=== PATIENT | male | born 1950 | race Asian ===

== ENCOUNTER → 2017-10-27 | Outpatient (CLI) | payer OTHER | END | disposition home or self-care (01) | LOC: PUL 11:06 | DX: R91.8 Other nonspecific abnormal finding of lung field (principal); I25.10 Atherosclerotic heart disease of native coronary artery without angina pectoris | CPT/HCPCS: 94060; 94726; 94729 ==

== ENCOUNTER 2017-11-20 06:11 | Inpatient (IN) | payer OTHER ==
[2017-11-20] MEDS ORDERED: NA BICARBONATE 8.4% 50 ML SYG ×3 (07:00→12:19)
[2017-11-20] MEDS ORDERED: DOPamine-D5W 1.6 MG/ML 250 ML (07:00)
[2017-11-20] MEDS ORDERED: NITROGLYCERIN 50 MG/D5W 250 ML BTL (07:00)
[2017-11-20] MEDS ORDERED: INSULIN REGULAR, HUMAN 100 UNIT/1 ML 3ML VIAL (07:00)
[2017-11-20] MEDS ORDERED: EPINEPHrine 4 MG in DEXTROSE 5% 246 ML IV (07:30)
[2017-11-20] MEDS ORDERED: PHENYLephrine 20MG IN 250 ML 250 ML IV ×2 (07:30→21:00)
[2017-11-20] MEDS ORDERED: MIDAZOLAM 5 ML ×2 (07:41→10:45)
[2017-11-20] MEDS ORDERED: LIDOCAINE 100 MG SYRINGE (07:43)
[2017-11-20] MEDS ORDERED: POTASSIUM CHLORIDE 40 MEQ INJ (07:43)
[2017-11-20] MEDS ORDERED: MAGNESIUM SULFATE (MG) 50% 10 ML INJ (07:43)
[2017-11-20] MEDS ORDERED: PHENYLephrine (100 MCG/ML) 5ML SYG ×3 (07:46→10:49)
[2017-11-20] MEDS ORDERED: HEPARIN 1000 UNITS/ML 10 ML INJ ×2 (07:55→09:59)
[2017-11-20] MEDS ORDERED: ALBUMIN HUMAN 25% 200 ML (07:55)
[2017-11-20] MEDS ORDERED: PHENYLephrine 10 MG INJ (07:57)
[2017-11-20] MEDS ORDERED: MANNITOL 20% 250 ML IV (07:57)
[2017-11-20] MEDS ORDERED: CA CHLORIDE 10% 10 ML SYRINGE (07:59)
[2017-11-20] MEDS: VANCOMYCIN 1 GM INJ (08:02)
[2017-11-20] MEDS: HEPARIN 1000 UNITS/ML 10 ML INJ (08:02)
[2017-11-20] MEDS ORDERED: LIDOCAINE 1% (MDV) 20 ML INJ (08:49)
[2017-11-20] MEDS ORDERED: CEFAZOLIN 1 GM INJ ×2 (09:23→15:02)
[2017-11-20] MEDS ORDERED: FUROSEMIDE 20 MG INJ ×3 (10:00→14:37)
[2017-11-20] MEDS: THROMBIN 5000 UNIT VIAL (11:38)
[2017-11-20] MEDS: GELATIN SIZE 100 SPONGE (11:38)
[2017-11-20 12:55] LABS: TYPE AND SCREEN 1
[2017-11-20 12:57] LABS: IMMEDIATE SPIN CROSSMATCH 1 8
[2017-11-20] MEDS ORDERED: PROTAMINE 250 MG INJ (14:06)
[2017-11-20] MEDS: TRANEXAMIC ACID 1,000 MG in DEXTROSE 5% 100 ML IV (15:30)
[2017-11-20] MEDS ORDERED: ETOMIDATE 20 MG INJ (16:14)
[2017-11-20] MEDS ORDERED: LIDOCAINE 2% (SDV) 5 ML INJ (16:14)
[2017-11-20] MEDS ORDERED: ROCURONIUM 50 MG INJ (16:16)
[2017-11-20] MEDS ORDERED: ALBUMIN HUMAN 5% 250 ML (16:54)
[2017-11-20] MEDS: DOPamine-D5W 1.6 MG/ML 250 ML IV (16:58)
[2017-11-20] MEDS: NITROGLYCERIN 50 MG/D5W (PMX) 250 ML IV (16:59)
[2017-11-20] MEDS ORDERED: ACETAMINOPHEN 650MG/20.3ML CUP NGT (17:00)
[2017-11-20] MEDS ORDERED: EPHEDrine SULFATE 50 MG/5 ML SYG IV (17:00)
[2017-11-20] MEDS ORDERED: INSULIN ASPART [NOVOLOG] 3 ML PEN SC (17:00)
[2017-11-20] MEDS ORDERED: ONDANSETRON 4 MG INJ IV ×2 (17:00)
[2017-11-20] MEDS ORDERED: hydrALAzine 20 MG INJ IV (17:00)
[2017-11-20] MEDS ORDERED: morphine (1 MG/ML) 10ML SYRINGE IV ×3 (17:00)
[2017-11-20] MEDS ORDERED: HYDROmorphONE 0.5 MG/0.5 ML SYG IV (17:00)
[2017-11-20] MEDS ORDERED: DIPHENHYDRAMINE 50 MG INJ IV (17:00)
[2017-11-20 17:13] LABS: WHITE BLOOD COUNT 23.5 10^3/ul (4.8-10.8)
[2017-11-20 17:13] LABS: ABNORMAL IP MESSAGE 1; HEMATOCRIT 36.1 % (42.0-52.0); MEAN CORPUSCULAR HEMOGLOBIN 32.4 pg (29.0-33.0); MEAN CORPUSCULAR HGB CONC 33.2 g/dl (32.0-37.0); MEAN CORPUSCULAR VOLUME 97.6 fl (82.0-101.0); MEAN PLATELET VOLUME 9.7 fl (7.4-10.4); PLATELET COUNT 139 10^3/UL (140-415); POSITIVE DIFF @See below; RED CELL DISTRIBUTION WIDTH 11.9 % (11.5-14.5)
[2017-11-20 17:15] LABS: ADD MAN DIFF? YES
[2017-11-20] MEDS: ALBUMIN HUMAN 5% 250 ML IV (17:15)
[2017-11-20 17:33] LABS: PROTIME 15.4 Sec (11.9-14.9); PT RATIO 1.2
[2017-11-20 17:34] LABS: PARTIAL THROMBOPLASTIN TIME 32.8 Sec (25.0-35.0)
[2017-11-20 17:37] LABS: ANION GAP 18 (8-16); BLOOD UREA NITROGEN 18 mg/dl (7-20); CALCIUM 8.9 mg/dl (8.4-10.2); CARBON DIOXIDE 27 mmol/L (21-31); CHLORIDE 104 mmol/L (97-110); CREATININE 1.26 mg/dl (0.61-1.24); GLUCOSE 122 mg/dl (70-220); MAGNESIUM 2.7 mg/dl (1.7-2.5); POTASSIUM 3.2 mmol/L (3.5-5.1); SODIUM 146 mmol/L (135-144)
[2017-11-20 17:41] LABS: ANISOCYTOSIS 1+ (0-0); BAND NEUTROPHILS #M 1.6 10^3/ul (0.0-0.6); BAND NEUTROPHILS % (M) 7 % (0-4); EOSINOPHILS % (M) 2 % (0-7); GIANT THROMBO% (M) 1 % (0-0); LYMPHOCYTES #M 4.7 10^3/ul (0.8-2.9); LYMPHOCYTES % (M) 20 % (15-51); METAMYELOCYTES #M 0.2 10^3/ul (0.0-0.0); METAMYELOCYTES %M 1 % (0-0); MONOCYTE #M 1.8 10^3/ul (0.3-0.9); MONOCYTES % (M) 8 % (0-11); PLATELET ESTIMATE NORMAL; POLYCHROMASIA 1+ (0-0); REACTIVE LYMPHOCYTES #M 0.2 10^3/ul (0.0-0.0); REACTIVE LYMPHOCYTES% (M) 1 % (0-0); SEG NEUT #M 14.7 10^3/ul (1.7-7.5); SEGMENTED NEUTROPHILS (M) % 61 % (39-77); SMUDGE%M 7 % (0-0)
[2017-11-20 17:53] LABS: MODE VENT - AC
[2017-11-20] MEDS: POTASSIUM CHLORIDE 50 ML IVPB ×3 (18:11→21:27)
[2017-11-20] MEDS: POTASSIUM CHLORIDE 40 MEQ, CALCIUM CHLORIDE 10% 1 GM in DEXTROSE 5%-0.225% NACL 1,000 ML IV (18:14)
[2017-11-20] MEDS: INSULIN HUMAN REGULAR 100 UNIT in SOD CHLORIDE 0.9% 99 ML IV ×3 (19:52→23:59)
[2017-11-20] MEDS: HYDROmorphONE 0.5 MG/0.5 ML SYG IV (19:59)
[2017-11-20] MEDS ORDERED: DEXTROSE 50% 50 ML SYRINGE IV ×2 (20:00)
[2017-11-20] MEDS: ACCU-CHEK XX ×4 (20:20→23:33)
[2017-11-20] MEDS: CEFAZOLIN 1 GM/50 ML (PMX) 50 ML IVPB (20:24)
[2017-11-20] MEDS: ACETAMINOPHEN 650 MG SUPP PR (23:40)
[2017-11-21 00:01] LABS: POTASSIUM 4.8 mmol/L (3.5-5.1)
[2017-11-21] MEDS: ACCU-CHEK XX ×26 (00:09→23:00)
[2017-11-21] MEDS: INSULIN HUMAN REGULAR 100 UNIT in SOD CHLORIDE 0.9% 99 ML IV ×4 (01:32→07:08)
[2017-11-21 04:22] LABS: ADD MAN DIFF? NO
[2017-11-21 04:24] LABS: ABNORMAL IP MESSAGE 1; BASOPHILS % 0.1 % (0.0-2.0); HEMATOCRIT 29.5 % (42.0-52.0); HEMOGLOBIN 9.7 g/dl (14.0-18.0); LYMPHOCYTES # 0.5 10^3/ul (0.8-2.9); LYMPHOCYTES % 4.4 % (15.0-51.0); MEAN CORPUSCULAR HEMOGLOBIN 32.1 pg (29.0-33.0); MEAN CORPUSCULAR HGB CONC 32.9 g/dl (32.0-37.0); MEAN CORPUSCULAR VOLUME 97.7 fl (82.0-101.0); MEAN PLATELET VOLUME 10.1 fl (7.4-10.4); MONOCYTE # 0.9 10^3/ul (0.3-0.9); MONOCYTES % 7.9 % (0.0-11.0); NEUTROPHIL # 9.4 10^3/ul (1.6-7.5); PLATELET COUNT 108 10^3/UL (140-415); POSITIVE DIFF @See below; RED BLOOD COUNT 3.02 10^6/ul (4.70-6.10); RED CELL DISTRIBUTION WIDTH 12.1 % (11.5-14.5)
[2017-11-21 04:24] LABS: WHITE BLOOD COUNT 10.8 10^3/ul (4.8-10.8)
[2017-11-21 04:39] LABS: AADO2 Arterial 244.9 mmHg (7.0-24.0); Arterial Base Excess -2.1 mmol/L (-3.0-3); Arterial Blood Gas Oxygen Sat 92.6 mmHG (95.0-98.0); Arterial COHb 0.3 % (0.0-3.0); Arterial Fraction of Oxyhgb 92.1 % (93.0-99.0); Arterial HCO3 22.7 mmol/L (22.0-26.0); Arterial MetHb 0.2 % (0.0-1.5); Arterial Total Hemglobin 10.1 g/dl (12.0-18.0); Arterial pCO2 38.9 mmhg (35-45); MODE VENT - AC; Site A-Line
[2017-11-21 04:46] LABS: INR 1.22; PROTIME 15.6 Sec (11.9-14.9); PT RATIO 1.2
[2017-11-21 04:47] LABS: PARTIAL THROMBOPLASTIN TIME 38.3 Sec (25.0-35.0)
[2017-11-21] MEDS: HYDROmorphONE 0.5 MG/0.5 ML SYG IV ×5 (04:47→19:56)
[2017-11-21 04:58] LABS: ANION GAP 15 (8-16); BLOOD UREA NITROGEN 20 mg/dl (7-20); CALCIUM 8.4 mg/dl (8.4-10.2); CARBON DIOXIDE 24 mmol/L (21-31); CHLORIDE 110 mmol/L (97-110); CREATININE 1.34 mg/dl (0.61-1.24); GLUCOSE 154 mg/dl (70-220); MAGNESIUM 1.8 mg/dl (1.7-2.5); POTASSIUM 5.5 mmol/L (3.5-5.1); SODIUM 143 mmol/L (135-144)
[2017-11-21] MEDS: MAGNESIUM SULFATE 1 GM/D5W 100 ML IVPB ×2 (05:55→07:14)
[2017-11-21] MEDS: DOPamine-D5W 1.6 MG/ML 250 ML IV (07:53)
[2017-11-21] MEDS: DEXTROSE 5%-0.225% NACL 1,000 ML IV (08:09)
[2017-11-21] MEDS: PANTOPRAZOLE 40 MG INJ IV (09:32)
[2017-11-21 11:14] LABS: AADO2 Arterial 232.6 mmHg (7.0-24.0); Arterial Base Excess -0.2 mmol/L (-3.0-3); Arterial Blood Gas Oxygen Sat 94.7 mmHG (95.0-98.0); Arterial COHb 0.3 % (0.0-3.0); Arterial Fraction of Oxyhgb 94.4 % (93.0-99.0); Arterial HCO3 24.6 mmol/L (22.0-26.0); Arterial MetHb 0 % (0.0-1.5); Arterial Total Hemglobin 10.4 g/dl (12.0-18.0); Arterial pCO2 40.7 mmhg (35-45); Blood Gas PS 5; MODE VENT - CPAP; Site A-Line
[2017-11-21] MEDS: ACETAMINOPHEN 325 MG TAB PO (13:05)
[2017-11-21] MEDS: OXYCODONE/ACETAMINOPHEN (5/325) TAB PO ×2 (14:49→17:54)
[2017-11-21 15:41] LABS: AADO2 Arterial 360.5 mmHg (7.0-24.0); Arterial Base Excess -0.5 mmol/L (-3.0-3); Arterial Blood Gas Oxygen Sat 91.7 mmHG (95.0-98.0); Arterial COHb 0.2 % (0.0-3.0); Arterial Fraction of Oxyhgb 91.2 % (93.0-99.0); Arterial HCO3 27.3 mmol/L (22.0-26.0); Arterial MetHb 0.3 % (0.0-1.5); Arterial Total Hemglobin 12.7 g/dl (12.0-18.0); Arterial pCO2 59.2 mmhg (35-45); Site A-Line
[2017-11-21 15:43] LABS: AADO2 Mixed Venous 389.6 mmHg; MODE VENT - AC; MetHgb Mixed Venous 0.5 %; Mixed Venous Base Excess -0.6 mmol/L; Mixed Venous COHb 0.5 %; Mixed Venous Fraction OxyHgb 65.6 %; Mixed Venous Oxygen Sat 66.3 mmHG (65.0-75.0); Mixed Venous Total Hemglobin 12.5 g/dl; Sample Type BLMV; Site PUL ART LINE
[2017-11-21 16:29] LABS: HEMATOCRIT 29.1 % (42.0-52.0)
[2017-11-21] MEDS: LEVALBUTEROL (NEB) 0.63 MG/3 ML AMP HHN ×2 (21:00→23:21)
[2017-11-22] MEDS: ACCU-CHEK XX ×7 (01:00→06:05)
[2017-11-22] MEDS: DEXTROSE 5%-0.225% NACL 1,000 ML IV ×2 (01:52→04:39)
[2017-11-22] MEDS: HYDROmorphONE 0.5 MG/0.5 ML SYG IV ×3 (02:05→12:31)
[2017-11-22] MEDS: LEVALBUTEROL (NEB) 0.63 MG/3 ML AMP HHN ×4 (02:35→13:56)
[2017-11-22 05:08] LABS: ADD MAN DIFF? NO
[2017-11-22 05:19] LABS: WHITE BLOOD COUNT 16.3 10^3/ul (4.8-10.8)
[2017-11-22 05:19] LABS: ABNORMAL IP MESSAGE 1; BASOPHILS % 0.2 % (0.0-2.0); EOSINOPHILS % 0.1 % (0.0-7.0); HEMATOCRIT 29.9 % (42.0-52.0); HEMOGLOBIN 9.6 g/dl (14.0-18.0); LYMPHOCYTES # 1.6 10^3/ul (0.8-2.9); LYMPHOCYTES % 9.8 % (15.0-51.0); MEAN CORPUSCULAR HEMOGLOBIN 32.2 pg (29.0-33.0); MEAN CORPUSCULAR HGB CONC 32.1 g/dl (32.0-37.0); MEAN CORPUSCULAR VOLUME 100.3 fl (82.0-101.0); MEAN PLATELET VOLUME 11.1 fl (7.4-10.4); MONOCYTE # 1.6 10^3/ul (0.3-0.9); MONOCYTES % 9.5 % (0.0-11.0); PLATELET COUNT 111 10^3/UL (140-415); POSITIVE DIFF @See below; RED BLOOD COUNT 2.98 10^6/ul (4.70-6.10); RED CELL DISTRIBUTION WIDTH 12.2 % (11.5-14.5)
[2017-11-22 05:54] LABS: ANION GAP 13 (8-16); BLOOD UREA NITROGEN 19 mg/dl (7-20); CALCIUM 8.6 mg/dl (8.4-10.2); CARBON DIOXIDE 27 mmol/L (21-31); CHLORIDE 104 mmol/L (97-110); CREATININE 1.14 mg/dl (0.61-1.24); GLUCOSE 146 mg/dl (70-220); MAGNESIUM 2.2 mg/dl (1.7-2.5); PHOSPHORUS 3.2 mg/dl (2.5-4.9); POTASSIUM 4.3 mmol/L (3.5-5.1); SODIUM 140 mmol/L (135-144)
[2017-11-22] MEDS: PANTOPRAZOLE 40 MG INJ IV (05:57)
[2017-11-22] MEDS: OXYCODONE/ACETAMINOPHEN (5/325) TAB PO (07:48)
[2017-11-22 08:23] LABS: AADO2 Arterial 186.1 mmHg (7.0-24.0); Allen Test ACCEPTAB; Arterial Base Excess -1.9 mmol/L (-3.0-3); Arterial Blood Gas Oxygen Sat 94.8 mmHG (95.0-98.0); Arterial COHb 0 % (0.0-3.0); Arterial Fraction of Oxyhgb 94.5 % (93.0-99.0); Arterial HCO3 23.9 mmol/L (22.0-26.0); Arterial MetHb 0.3 % (0.0-1.5); Arterial Total Hemglobin 10.3 g/dl (12.0-18.0); Arterial pCO2 45.5 mmhg (35-45); MODE MASK - SIMPLE; Site Right Radial
[2017-11-22] MEDS: ASPIRIN 81 MG TAB PO (08:38)
[2017-11-22] MEDS ORDERED: FUROSEMIDE 40 MG INJ (10:48)
[2017-11-22] MEDS: FUROSEMIDE 40 MG INJ IV (11:00)
[2017-11-22] MEDS: METHYLPREDNISOLONE 40 MG INJ IV ×2 (13:24→21:33)
[2017-11-22] MEDS: IPRATROPIUM (NEB) 0.5 MG/2.5 ML AMP HHN ×3 (13:56→19:39)
[2017-11-22] MEDS: ACETAMINOPHEN 325 MG TAB PO (16:30)
[2017-11-22] MEDS ORDERED: GLUCAGON 1 MG INJ IM (17:00)
[2017-11-22] MEDS ORDERED: GLUCOSE GEL 15 GRAM TUBE PO ×2 (17:00)
[2017-11-22] MEDS ORDERED: GLUCOSE GEL 15 GRAM TUBE BUCCAL (17:00)
[2017-11-22] MEDS ORDERED: DEXTROSE 50% 50 ML SYRINGE IV ×2 (17:00)
[2017-11-22] MEDS: LEVALBUTEROL (NEB) 1.25 MG/0.5 ML AMP HHN ×2 (17:32→19:36)
[2017-11-22] MEDS: INSULIN ASPART [NOVOLOG] 3 ML PEN SC ×2 (18:06→21:08)
[2017-11-22] MEDS: METOPROLOL 25 MG TAB PO ×2 (21:00→22:15)
[2017-11-22] MEDS: LORAZEPAM 0.5 MG TAB PO (21:33)
[2017-11-22] MEDS ORDERED: METOPROLOL 5 MG INJ IV (23:30)
[2017-11-23] MEDS: AMIODARONE 150MG/D5W BOLUS 100 ML IV (00:21)
[2017-11-23] MEDS: AMIODARONE 900 MG in DEXTROSE 5% 482 ML IV (00:40)
[2017-11-23] MEDS: IPRATROPIUM (NEB) 0.5 MG/2.5 ML AMP HHN ×5 (01:32→19:47)
[2017-11-23] MEDS: LEVALBUTEROL (NEB) 1.25 MG/0.5 ML AMP HHN ×5 (01:32→19:46)
[2017-11-23] MEDS: ACCU-CHEK XX (02:17)
[2017-11-23] MEDS: LORAZEPAM 0.5 MG TAB PO (03:04)
[2017-11-23 04:12] LABS: AADO2 Arterial 299.9 mmHg (7.0-24.0); Allen Test ACCEPTAB; Arterial Base Excess -3.2 mmol/L (-3.0-3); Arterial Blood Gas Oxygen Sat 96.4 mmHG (95.0-98.0); Arterial COHb 0.3 % (0.0-3.0); Arterial Fraction of Oxyhgb 95.8 % (93.0-99.0); Arterial HCO3 20.6 mmol/L (22.0-26.0); Arterial MetHb 0.3 % (0.0-1.5); Arterial Total Hemglobin 10.8 g/dl (12.0-18.0); Arterial pCO2 32.5 mmhg (35-45); MODE HFNC; Site Right Radial
[2017-11-23] MEDS: HYDROmorphONE 0.5 MG/0.5 ML SYG IV (04:28)
[2017-11-23] MEDS ORDERED: RACEPINEPHRINE 2.25%(NEB) 0.5 ML AMP (04:53)
[2017-11-23] MEDS: RACEPINEPHRINE 2.25%(NEB) 0.5 ML AMP HHN (05:00)
[2017-11-23] MEDS: METHYLPREDNISOLONE 40 MG INJ IV ×3 (05:27→20:46)
[2017-11-23] MEDS: PANTOPRAZOLE 40 MG INJ IV (05:27)
[2017-11-23] MEDS: METHYLPREDNISOLONE 125 MG INJ IV (06:40)
[2017-11-23 07:23] LABS: ADD MAN DIFF? NO
[2017-11-23 07:27] LABS: HEMOGLOBIN 9.3 g/dl (14.0-18.0); RED BLOOD COUNT 2.87 10^6/ul (4.70-6.10)
[2017-11-23 07:27] LABS: WHITE BLOOD COUNT 12.6 10^3/ul (4.8-10.8)
[2017-11-23 07:28] LABS: ABNORMAL IP MESSAGE 1; BASOPHILS % 0.1 % (0.0-2.0); HEMATOCRIT 28.2 % (42.0-52.0); LYMPHOCYTES # 0.5 10^3/ul (0.8-2.9); LYMPHOCYTES % 4.1 % (15.0-51.0); MEAN CORPUSCULAR HEMOGLOBIN 32.4 pg (29.0-33.0); MEAN CORPUSCULAR VOLUME 98.3 fl (82.0-101.0); MEAN PLATELET VOLUME 10.9 fl (7.4-10.4); MONOCYTE # 0.3 10^3/ul (0.3-0.9); MONOCYTES % 2.6 % (0.0-11.0); NEUTROPHIL # 11.7 10^3/ul (1.6-7.5); NEUTROPHILS % 92.5 % (39.0-77.0); PLATELET COUNT 125 10^3/UL (140-415); POSITIVE DIFF @See below; RED CELL DISTRIBUTION WIDTH 11.9 % (11.5-14.5)
[2017-11-23] MEDS: INSULIN ASPART [NOVOLOG] 3 ML PEN SC ×4 (07:35→20:56)
[2017-11-23 07:58] LABS: ANION GAP 18 (8-16); BLOOD UREA NITROGEN 33 mg/dl (7-20); CALCIUM 8.5 mg/dl (8.4-10.2); CARBON DIOXIDE 24 mmol/L (21-31); CHLORIDE 100 mmol/L (97-110); GLUCOSE 158 mg/dl (70-220); MAGNESIUM 2.1 mg/dl (1.7-2.5); SODIUM 137 mmol/L (135-144)
[2017-11-23] MEDS: ASPIRIN 81 MG TAB PO (09:16)
[2017-11-23] MEDS: METOPROLOL 50 MG TAB GTB ×2 (09:17→20:58)
[2017-11-23 09:20] LABS: AADO2 Arterial 158.3 mmHg (7.0-24.0); Allen Test ACCEPTAB; Arterial Base Excess -2.5 mmol/L (-3.0-3); Arterial Blood Gas Oxygen Sat 96.4 mmHG (95.0-98.0); Arterial COHb 0.3 % (0.0-3.0); Arterial Fraction of Oxyhgb 95.8 % (93.0-99.0); Arterial HCO3 20.5 mmol/L (22.0-26.0); Arterial MetHb 0.3 % (0.0-1.5); Arterial Total Hemglobin 10.8 g/dl (12.0-18.0); Arterial pCO2 29.6 mmhg (35-45); Blood Gas IEPAP 15/5; MODE MASK - BIPAP; Site Right Radial
[2017-11-23] MEDS: OXYCODONE/ACETAMINOPHEN (5/325) TAB PO ×2 (09:44→16:18)
[2017-11-23] MEDS: FUROSEMIDE 40 MG INJ IV (10:10)
[2017-11-23] MEDS: BISACODYL (EC) 5 MG TAB PO (16:10)
[2017-11-23] MEDS: DOCUSATE SODIUM 100 MG CAP PO ×2 (16:11→20:45)
[2017-11-23] MEDS: AMIODARONE 200 MG TAB NGT (20:45)
[2017-11-24] MEDS: LEVALBUTEROL (NEB) 1.25 MG/0.5 ML AMP HHN ×4 (01:21→19:51)
[2017-11-24] MEDS: IPRATROPIUM (NEB) 0.5 MG/2.5 ML AMP HHN ×4 (01:21→19:51)
[2017-11-24] MEDS: ACCU-CHEK XX (02:01)
[2017-11-24] MEDS: PANTOPRAZOLE 40 MG INJ IV (05:37)
[2017-11-24] MEDS: METHYLPREDNISOLONE 40 MG INJ IV ×2 (05:38→16:41)
[2017-11-24 05:43] LABS: WHITE BLOOD COUNT 18.1 10^3/ul (4.8-10.8)
[2017-11-24 05:43] LABS: HEMATOCRIT 31.6 % (42.0-52.0); HEMOGLOBIN 10.4 g/dl (14.0-18.0); MEAN CORPUSCULAR HEMOGLOBIN 32.3 pg (29.0-33.0); MEAN CORPUSCULAR HGB CONC 32.9 g/dl (32.0-37.0); MEAN CORPUSCULAR VOLUME 98.1 fl (82.0-101.0); MEAN PLATELET VOLUME 11.5 fl (7.4-10.4); NUCLEATED RED BLOOD CELLS% 2.3 /100WBC (0.0-0.0); PLATELET COUNT 160 10^3/UL (140-415); POSITIVE DIFF @See below; RED BLOOD COUNT 3.22 10^6/ul (4.70-6.10)
[2017-11-24 06:05] LABS: ADD MAN DIFF? YES
[2017-11-24 06:15] LABS: ANION GAP 20 (8-16); BLOOD UREA NITROGEN 51 mg/dl (7-20); CARBON DIOXIDE 24 mmol/L (21-31); CHLORIDE 98 mmol/L (97-110); CREATININE 1.45 mg/dl (0.61-1.24); GLUCOSE 251 mg/dl (70-220); MAGNESIUM 2.3 mg/dl (1.7-2.5); PHOSPHORUS 4.5 mg/dl (2.5-4.9); POTASSIUM 4.8 mmol/L (3.5-5.1); SODIUM 137 mmol/L (135-144)
[2017-11-24 06:18] LABS: ALBUMIN 4.1 g/dl (3.3-4.9); ALBUMIN/GLOBULIN RATIO 1.24; ALKALINE PHOSPHATASE 62 IU/L (42-121); ANION GAP 20 (8-16); BILIRUBIN,INDIRECT 0.7 mg/dl (0-1.1); BILIRUBIN,TOTAL 0.7 mg/dl (0.2-1.3); BLOOD UREA NITROGEN 51 mg/dl (7-20); CALCIUM 9.1 mg/dl (8.4-10.2); CARBON DIOXIDE 24 mmol/L (21-31); CHLORIDE 98 mmol/L (97-110); CREATININE 1.56 mg/dl (0.61-1.24); GLUCOSE 256 mg/dl (70-220); POTASSIUM 4.5 mmol/L (3.5-5.1); SODIUM 137 mmol/L (135-144); TOTAL PROTEIN 7.4 g/dl (6.1-8.1)
[2017-11-24 06:32] LABS: ALANINE AMINOTRANSFERASE 2297 IU/L (13-69)
[2017-11-24 07:32] LABS: ASPARTATE AMINO TRANSFERASE 3595 IU/L (15-46)
[2017-11-24] MEDS: INSULIN ASPART [NOVOLOG] 3 ML PEN SC ×5 (07:42→20:20)
[2017-11-24] MEDS: METOPROLOL 50 MG TAB GTB ×2 (08:39→20:17)
[2017-11-24] MEDS: AMIODARONE 200 MG TAB NGT ×3 (08:39→20:17)
[2017-11-24] MEDS: DOCUSATE SODIUM 100 MG CAP PO ×2 (08:40→20:18)
[2017-11-24] MEDS: ASPIRIN 81 MG TAB PO (08:40)
[2017-11-24 08:53] LABS: BAND NEUTROPHILS #M 1.2 10^3/ul (0.0-0.6); BAND NEUTROPHILS % (M) 7 % (0-4); ERYTHROBLAST% (NRBC) (M) 3 % (0-0); GIANT THROMBO% (M) 2 % (0-0); LYMPHOCYTES #M 1.4 10^3/ul (0.8-2.9); LYMPHOCYTES % (M) 8 % (15-51); MONOCYTE #M 0.3 10^3/ul (0.3-0.9); MONOCYTES % (M) 2 % (0-11); PLATELET ESTIMATE NORMAL; POLYCHROMASIA 2+ (0-0); SEG NEUT #M 15.2 10^3/ul (1.6-7.5); SEGMENTED NEUTROPHILS (M) % 83 % (39-77)
[2017-11-24 09:20] LABS: ADD UMIC YES; UR ASCORBIC ACID NEGATIVE (NEGATIVE); UR BILIRUBIN (Dip) NEGATIVE (NEGATIVE); UR BLOOD (Dip) 2+ mg/dL (NEGATIVE); UR CLARITY CLEAR (CLEAR); UR COLOR YELLOW (YELLOW); UR GLUCOSE (Dip) 3+ mg/dL (NEGATIVE); UR KETONES (Dip) NEGATIVE (NEGATIVE); UR LEUKOCYTE ESTERASE (Dip) NEGATIVE Leu/ul (NEGATIVE); UR NITRITE (Dip) NEGATIVE (NEGATIVE); UR RBC 3 /HPF (0-5); UR SPECIFIC GRAVITY (Dip) 1.011 (1.003-1.030); UR TOTAL PROTEIN (Dip) 2+ mg/dl (NEGATIVE); UR UROBILINOGEN (Dip) NEGATIVE (NEGATIVE); UR WBC 1 /HPF (0-5)
[2017-11-24 10:03] LABS: CREATININE,URINE RANDOM 43.73 mg/dl (20-370); PROTEIN/CREAT RATIO 1.94 RATIO
[2017-11-24] MEDS: LEVALBUTEROL (NEB) 0.63 MG/3 ML AMP HHN (12:28)
[2017-11-24] MEDS: INSULIN GLARGINE [LANtus] 3 ML PEN SC (15:16)
[2017-11-24] MEDS: OXYCODONE/ACETAMINOPHEN (5/325) TAB PO (20:18)
[2017-11-25] MEDS: LEVALBUTEROL (NEB) 1.25 MG/0.5 ML AMP HHN ×4 (01:38→20:03)
[2017-11-25] MEDS: IPRATROPIUM (NEB) 0.5 MG/2.5 ML AMP HHN ×4 (01:38→20:03)
[2017-11-25] MEDS ORDERED: ACCU-CHEK XX (02:00)
[2017-11-25] MEDS: ACCU-CHEK XX (02:30)
[2017-11-25] MEDS: INSULIN ASPART [NOVOLOG] 3 ML PEN SC ×8 (02:34→20:44)
[2017-11-25] MEDS: OXYCODONE/ACETAMINOPHEN (5/325) TAB PO ×3 (04:41→20:34)
[2017-11-25] MEDS: PANTOPRAZOLE 40 MG INJ IV (05:02)
[2017-11-25 05:40] LABS: ADD MAN DIFF? NO
[2017-11-25 06:02] LABS: BASOPHILS % 0.2 % (0.0-2.0); HEMATOCRIT 33.4 % (42.0-52.0); HEMOGLOBIN 10.8 g/dl (14.0-18.0); LYMPHOCYTES # 0.7 10^3/ul (0.8-2.9); LYMPHOCYTES % 4.6 % (15.0-51.0); MEAN CORPUSCULAR HEMOGLOBIN 31.8 pg (29.0-33.0); MEAN CORPUSCULAR HGB CONC 32.3 g/dl (32.0-37.0); MEAN CORPUSCULAR VOLUME 98.2 fl (82.0-101.0); MEAN PLATELET VOLUME 10.7 fl (7.4-10.4); MONOCYTE # 0.8 10^3/ul (0.3-0.9); MONOCYTES % 5.1 % (0.0-11.0); NEUTROPHIL # 13.6 10^3/ul (1.6-7.5); NEUTROPHILS % 85.3 % (39.0-77.0); NUCLEATED RED BLOOD CELLS # 0.6 10^3/ul (0.0-0.0); NUCLEATED RED BLOOD CELLS% 3.5 /100WBC (0.0-0.0); PLATELET COUNT 196 10^3/UL (140-415); RED CELL DISTRIBUTION WIDTH 11.9 % (11.5-14.5)
[2017-11-25 06:02] LABS: WHITE BLOOD COUNT 15.9 10^3/ul (4.8-10.8)
[2017-11-25 06:07] LABS: ALBUMIN 3.7 g/dl (3.3-4.9); ALBUMIN/GLOBULIN RATIO 1.27; ALKALINE PHOSPHATASE 69 IU/L (42-121); ANION GAP 14 (8-16); BILIRUBIN,INDIRECT 0.7 mg/dl (0-1.1); BILIRUBIN,TOTAL 0.7 mg/dl (0.2-1.3); BLOOD UREA NITROGEN 43 mg/dl (7-20); CALCIUM 8.7 mg/dl (8.4-10.2); CARBON DIOXIDE 29 mmol/L (21-31); CHLORIDE 101 mmol/L (97-110); CREATININE 1.22 mg/dl (0.61-1.24); GLUCOSE 212 mg/dl (70-220); POTASSIUM 4.8 mmol/L (3.5-5.1); SODIUM 139 mmol/L (135-144); TOTAL PROTEIN 6.6 g/dl (6.1-8.1)
[2017-11-25 06:16] LABS: ALANINE AMINOTRANSFERASE 1538 IU/L (13-69); ASPARTATE AMINO TRANSFERASE 825 IU/L (15-46)
[2017-11-25 07:23] LABS: HEMOGLOBIN A1C 6.5 % (0-5.9)
[2017-11-25] MEDS: INSULIN GLARGINE [LANtus] 3 ML PEN SC (07:57)
[2017-11-25] MEDS: AMIODARONE 200 MG TAB NGT ×3 (08:53→20:33)
[2017-11-25] MEDS: ASPIRIN 81 MG TAB PO (08:53)
[2017-11-25] MEDS: METOPROLOL 50 MG TAB GTB ×2 (08:54→20:34)
[2017-11-25] MEDS: DOCUSATE SODIUM 100 MG CAP PO ×2 (08:54→20:33)
[2017-11-25] MEDS: METHYLPREDNISOLONE 40 MG INJ IV (10:05)
[2017-11-25] MEDS: FUROSEMIDE 20 MG INJ IV (16:46)
[2017-11-26] MEDS: LEVALBUTEROL (NEB) 1.25 MG/0.5 ML AMP HHN ×4 (01:00→21:51)
[2017-11-26] MEDS: IPRATROPIUM (NEB) 0.5 MG/2.5 ML AMP HHN ×4 (01:00→21:51)
[2017-11-26] MEDS: OXYCODONE/ACETAMINOPHEN (5/325) TAB PO ×3 (03:40→18:16)
[2017-11-26 07:01] LABS: ADD MAN DIFF? NO
[2017-11-26 07:04] LABS: BASOPHILS % 0.2 % (0.0-2.0); HEMATOCRIT 35.3 % (42.0-52.0); HEMOGLOBIN 11.2 g/dl (14.0-18.0); LYMPHOCYTES # 0.8 10^3/ul (0.8-2.9); LYMPHOCYTES % 5.2 % (15.0-51.0); MEAN CORPUSCULAR HEMOGLOBIN 31.6 pg (29.0-33.0); MEAN CORPUSCULAR HGB CONC 31.7 g/dl (32.0-37.0); MEAN CORPUSCULAR VOLUME 99.7 fl (82.0-101.0); MEAN PLATELET VOLUME 10.6 fl (7.4-10.4); MONOCYTE # 0.8 10^3/ul (0.3-0.9); NEUTROPHIL # 13.3 10^3/ul (1.6-7.5); NEUTROPHILS % 84.6 % (39.0-77.0); NUCLEATED RED BLOOD CELLS # 0.6 10^3/ul (0.0-0.0); NUCLEATED RED BLOOD CELLS% 3.8 /100WBC (0.0-0.0); PLATELET COUNT 247 10^3/UL (140-415); RED BLOOD COUNT 3.54 10^6/ul (4.70-6.10); RED CELL DISTRIBUTION WIDTH 12.1 % (11.5-14.5)
[2017-11-26 07:04] LABS: WHITE BLOOD COUNT 15.8 10^3/ul (4.8-10.8)
[2017-11-26 07:58] LABS: ANION GAP 16 (8-16); BLOOD UREA NITROGEN 47 mg/dl (7-20); CALCIUM 8.6 mg/dl (8.4-10.2); CHLORIDE 98 mmol/L (97-110); CREATININE 1.38 mg/dl (0.61-1.24); GLUCOSE 314 mg/dl (70-220); MAGNESIUM 2.3 mg/dl (1.7-2.5); PHOSPHORUS 4.6 mg/dl (2.5-4.9); POTASSIUM 5.3 mmol/L (3.5-5.1); SODIUM 137 mmol/L (135-144)
[2017-11-26 08:03] LABS: CARBON DIOXIDE 28 mmol/L (21-31)
[2017-11-26] MEDS: INSULIN ASPART [NOVOLOG] 3 ML PEN SC ×7 (08:03→20:12)
[2017-11-26] MEDS: INSULIN GLARGINE [LANtus] 3 ML PEN SC (08:04)
[2017-11-26] MEDS: DOCUSATE SODIUM 100 MG CAP PO ×2 (08:54→20:05)
[2017-11-26] MEDS: AMIODARONE 200 MG TAB NGT ×3 (08:54→20:06)
[2017-11-26] MEDS: METOPROLOL 50 MG TAB GTB ×2 (08:54→23:16)
[2017-11-26] MEDS: ASPIRIN 81 MG TAB PO (08:54)
[2017-11-26] MEDS: FUROSEMIDE 20 MG INJ IV ×2 (11:33→17:36)
[2017-11-26] MEDS: ATORVASTATIN 40 MG TAB PO (20:06)
[2017-11-27] MEDS: LEVALBUTEROL (NEB) 1.25 MG/0.5 ML AMP HHN ×2 (01:27→21:34)
[2017-11-27] MEDS: IPRATROPIUM (NEB) 0.5 MG/2.5 ML AMP HHN ×4 (01:27→21:27)
[2017-11-27] MEDS: OXYCODONE/ACETAMINOPHEN (5/325) TAB PO ×4 (03:23→20:42)
[2017-11-27] MEDS: FUROSEMIDE 20 MG INJ IV (05:08)
[2017-11-27] MEDS: INSULIN ASPART [NOVOLOG] 3 ML PEN SC ×7 (07:26→20:46)
[2017-11-27] MEDS: INSULIN GLARGINE [LANtus] 3 ML PEN SC (07:28)
[2017-11-27] MEDS: LEVALBUTEROL (NEB) 0.63 MG/3 ML AMP HHN ×3 (07:46→21:27)
[2017-11-27] MEDS: DOCUSATE SODIUM 100 MG CAP PO ×2 (08:42→20:41)
[2017-11-27] MEDS: METOPROLOL 50 MG TAB GTB ×2 (08:42→20:41)
[2017-11-27] MEDS: ASPIRIN 325 MG TAB PO (08:43)
[2017-11-27] MEDS: AMIODARONE 200 MG TAB NGT ×3 (08:43→20:41)
[2017-11-27 08:51] LABS: ANION GAP 13 (8-16); BLOOD UREA NITROGEN 50 mg/dl (7-20); CALCIUM 8.7 mg/dl (8.4-10.2); CARBON DIOXIDE 29 mmol/L (21-31); CHLORIDE 100 mmol/L (97-110); CREATININE 1.42 mg/dl (0.61-1.24); GLUCOSE 138 mg/dl (70-220); MAGNESIUM 2.1 mg/dl (1.7-2.5); SODIUM 138 mmol/L (135-144)
[2017-11-27] MEDS: INFLUENZA VIRUS VACCINE 0.5 ML SYG IM* (11:51)
[2017-11-27] MEDS: ATORVASTATIN 40 MG TAB PO (20:41)
[2017-11-28] MEDS: LEVALBUTEROL (NEB) 1.25 MG/0.5 ML AMP HHN ×4 (01:37→19:10)
[2017-11-28] MEDS: IPRATROPIUM (NEB) 0.5 MG/2.5 ML AMP HHN ×4 (01:37→19:10)
[2017-11-28] MEDS: OXYCODONE/ACETAMINOPHEN (5/325) TAB PO ×4 (03:45→23:54)
[2017-11-28] MEDS: INSULIN ASPART [NOVOLOG] 3 ML PEN SC ×7 (07:55→21:00)
[2017-11-28] MEDS: ASPIRIN 325 MG TAB PO (08:15)
[2017-11-28] MEDS: AMIODARONE 200 MG TAB NGT ×3 (08:15→20:58)
[2017-11-28] MEDS: DOCUSATE SODIUM 100 MG CAP PO ×2 (08:15→20:59)
[2017-11-28] MEDS: METOPROLOL 50 MG TAB GTB ×2 (08:16→20:58)
[2017-11-28] MEDS: INSULIN GLARGINE [LANtus] 3 ML PEN SC (08:26)
[2017-11-28] MEDS: ATORVASTATIN 40 MG TAB PO (20:59)
[2017-11-28] MEDS: LEVALBUTEROL (NEB) 0.63 MG/3 ML AMP HHN (23:10)
[2017-11-29] MEDS: LEVALBUTEROL (NEB) 1.25 MG/0.5 ML AMP HHN ×4 (02:16→19:37)
[2017-11-29] MEDS: IPRATROPIUM (NEB) 0.5 MG/2.5 ML AMP HHN ×4 (02:16→19:37)
[2017-11-29] MEDS: INSULIN ASPART [NOVOLOG] 3 ML PEN SC ×7 (08:11→21:00)
[2017-11-29] MEDS: INSULIN GLARGINE [LANtus] 3 ML PEN SC (08:11)
[2017-11-29] MEDS: AMIODARONE 200 MG TAB NGT ×3 (09:11→20:39)
[2017-11-29] MEDS: METOPROLOL 50 MG TAB GTB ×2 (09:11→20:39)
[2017-11-29] MEDS: ASPIRIN 325 MG TAB PO (09:11)
[2017-11-29] MEDS: OXYCODONE/ACETAMINOPHEN (5/325) TAB PO ×2 (09:11→15:57)
[2017-11-29] MEDS: DOCUSATE SODIUM 100 MG CAP PO ×2 (09:12→20:39)
[2017-11-29] MEDS: ATORVASTATIN 40 MG TAB PO (20:39)
[2017-11-30] MEDS: IPRATROPIUM (NEB) 0.5 MG/2.5 ML AMP HHN ×4 (00:21→19:43)
[2017-11-30] MEDS: LEVALBUTEROL (NEB) 1.25 MG/0.5 ML AMP HHN ×4 (00:21→19:43)
[2017-11-30] MEDS: OXYCODONE/ACETAMINOPHEN (5/325) TAB PO ×3 (04:28→22:01)
[2017-11-30] MEDS: INSULIN ASPART [NOVOLOG] 3 ML PEN SC ×7 (07:55→22:00)
[2017-11-30] MEDS: DOCUSATE SODIUM 100 MG CAP PO ×2 (08:17→21:00)
[2017-11-30] MEDS: ASPIRIN 325 MG TAB PO (08:17)
[2017-11-30] MEDS: AMIODARONE 200 MG TAB NGT ×2 (08:17→22:02)
[2017-11-30] MEDS: METOPROLOL 50 MG TAB GTB ×2 (08:19→22:02)
[2017-11-30] MEDS: INSULIN GLARGINE [LANtus] 3 ML PEN SC (08:33)
[2017-11-30 13:13] LABS: ADD MAN DIFF? NO
[2017-11-30 13:37] LABS: WHITE BLOOD COUNT 17.4 10^3/ul (4.8-10.8)
[2017-11-30 13:37] LABS: ANION GAP 13 (8-16); BASOPHILS % 0.2 % (0.0-2.0); BLOOD UREA NITROGEN 27 mg/dl (7-20); CALCIUM 9.1 mg/dl (8.4-10.2); CARBON DIOXIDE 31 mmol/L (21-31); CHLORIDE 99 mmol/L (97-110); CREATININE 1.26 mg/dl (0.61-1.24); EOSINOPHILS # 0.5 10^3/ul (0.0-0.5); EOSINOPHILS % 2.6 % (0.0-7.0); GLUCOSE 86 mg/dl (70-220); HEMATOCRIT 36.1 % (42.0-52.0); HEMOGLOBIN 11.5 g/dl (14.0-18.0); LYMPHOCYTES # 1.4 10^3/ul (0.8-2.9); LYMPHOCYTES % 7.9 % (15.0-51.0); MEAN CORPUSCULAR HEMOGLOBIN 31.9 pg (29.0-33.0); MEAN CORPUSCULAR HGB CONC 31.9 g/dl (32.0-37.0); MEAN CORPUSCULAR VOLUME 100.3 fl (82.0-101.0); MEAN PLATELET VOLUME 10.1 fl (7.4-10.4); MONOCYTE # 1.3 10^3/ul (0.3-0.9); MONOCYTES % 7.2 % (0.0-11.0); NEUTROPHIL # 13.8 10^3/ul (1.6-7.5); NEUTROPHILS % 79.2 % (39.0-77.0); PLATELET COUNT 279 10^3/UL (140-415); POTASSIUM 4.8 mmol/L (3.5-5.1); RED CELL DISTRIBUTION WIDTH 12.7 % (11.5-14.5); SODIUM 138 mmol/L (135-144)
[2017-11-30 13:40] LABS: AADO2 Arterial 47.7 mmHg (7.0-24.0); Allen Test ACCEPTAB; Arterial Base Excess 0 mmol/L (-3.0-3); Arterial Blood Gas Oxygen Sat 87.2 mmHG (95.0-98.0); Arterial COHb 1.1 % (0.0-3.0); Arterial Fraction of Oxyhgb 86.2 % (93.0-99.0); Arterial HCO3 24.6 mmol/L (22.0-26.0); Arterial MetHb 0.1 % (0.0-1.5); Arterial Total Hemglobin 13.4 g/dl (12.0-18.0); Arterial pCO2 40.2 mmhg (35-45); MODE ROOM AIR; Site Right Radial
[2017-11-30] MEDS: GUAIFENESIN/DM 5ML CUP PO ×2 (17:55→22:17)
[2017-11-30] MEDS: ATORVASTATIN 40 MG TAB PO (22:02)
[2017-12-01] MEDS: LEVALBUTEROL (NEB) 1.25 MG/0.5 ML AMP HHN ×4 (01:22→19:29)
[2017-12-01] MEDS: IPRATROPIUM (NEB) 0.5 MG/2.5 ML AMP HHN ×4 (01:23→19:29)
[2017-12-01] MEDS: GUAIFENESIN/DM 5ML CUP PO (06:24)
[2017-12-01] MEDS: INSULIN ASPART [NOVOLOG] 3 ML PEN SC ×7 (07:55→21:00)
[2017-12-01] MEDS: ASPIRIN 325 MG TAB PO (08:43)
[2017-12-01] MEDS: DOCUSATE SODIUM 100 MG CAP PO ×2 (08:43→21:38)
[2017-12-01] MEDS: ACETAMINOPHEN 325 MG TAB PO ×2 (08:43→22:13)
[2017-12-01] MEDS: METOPROLOL 50 MG TAB GTB ×2 (08:44→21:37)
[2017-12-01] MEDS: AMIODARONE 200 MG TAB NGT ×2 (08:44→21:38)
[2017-12-01] MEDS: INSULIN GLARGINE [LANtus] 3 ML PEN SC (09:00)
[2017-12-01] MEDS: OXYCODONE/ACETAMINOPHEN (5/325) TAB PO (12:41)
[2017-12-01] MEDS: ATORVASTATIN 40 MG TAB PO (21:36)
[2017-12-02] MEDS: LEVALBUTEROL (NEB) 1.25 MG/0.5 ML AMP HHN ×4 (01:58→20:14)
[2017-12-02] MEDS: IPRATROPIUM (NEB) 0.5 MG/2.5 ML AMP HHN ×4 (01:58→20:14)
[2017-12-02] MEDS: INSULIN ASPART [NOVOLOG] 3 ML PEN SC ×7 (07:55→21:00)
[2017-12-02] MEDS: ASPIRIN 325 MG TAB PO (08:28)
[2017-12-02] MEDS: DOCUSATE SODIUM 100 MG CAP PO ×2 (08:28→21:00)
[2017-12-02] MEDS: AMIODARONE 200 MG TAB NGT ×2 (08:28→22:26)
[2017-12-02] MEDS: METOPROLOL 50 MG TAB GTB ×2 (08:29→22:26)
[2017-12-02] MEDS: INSULIN GLARGINE [LANtus] 3 ML PEN SC (09:53)
[2017-12-02] MEDS: FUROSEMIDE 20 MG INJ IV (13:30)
[2017-12-02] MEDS: OXYCODONE/ACETAMINOPHEN (5/325) TAB PO ×2 (13:35→22:32)
[2017-12-02] MEDS: ATORVASTATIN 40 MG TAB PO (22:25)
[2017-12-03] MEDS: IPRATROPIUM (NEB) 0.5 MG/2.5 ML AMP HHN ×4 (01:10→20:51)
[2017-12-03] MEDS: LEVALBUTEROL (NEB) 1.25 MG/0.5 ML AMP HHN ×4 (01:11→20:51)
[2017-12-03] MEDS: INSULIN ASPART [NOVOLOG] 3 ML PEN SC ×7 (07:55→21:00)
[2017-12-03] MEDS: INSULIN GLARGINE [LANtus] 3 ML PEN SC (08:02)
[2017-12-03] MEDS: ASPIRIN 325 MG TAB PO (08:47)
[2017-12-03] MEDS: DOCUSATE SODIUM 100 MG CAP PO ×2 (08:47→21:10)
[2017-12-03] MEDS: OXYCODONE/ACETAMINOPHEN (5/325) TAB PO ×2 (08:48→21:18)
[2017-12-03] MEDS: AMIODARONE 200 MG TAB NGT ×2 (08:48→21:10)
[2017-12-03] MEDS: METOPROLOL 50 MG TAB GTB ×2 (08:48→21:10)
[2017-12-03] MEDS: ATORVASTATIN 40 MG TAB PO (21:09)
[2017-12-04] MEDS: LEVALBUTEROL (NEB) 1.25 MG/0.5 ML AMP HHN ×4 (02:12→19:49)
[2017-12-04] MEDS: IPRATROPIUM (NEB) 0.5 MG/2.5 ML AMP HHN ×4 (02:12→19:49)
[2017-12-04 07:51] LABS: ANION GAP 12 (8-16); BLOOD UREA NITROGEN 18 mg/dl (7-20); CALCIUM 8.8 mg/dl (8.4-10.2); CARBON DIOXIDE 30 mmol/L (21-31); CHLORIDE 103 mmol/L (97-110); CREATININE 1.07 mg/dl (0.61-1.24); GLUCOSE 101 mg/dl (70-220); POTASSIUM 4.3 mmol/L (3.5-5.1); SODIUM 141 mmol/L (135-144)
[2017-12-04] MEDS: INSULIN ASPART [NOVOLOG] 3 ML PEN SC ×7 (07:55→21:00)
[2017-12-04] MEDS: INSULIN GLARGINE [LANtus] 3 ML PEN SC ×2 (07:58→08:08)
[2017-12-04] MEDS: DOCUSATE SODIUM 100 MG CAP PO ×2 (08:32→21:00)
[2017-12-04] MEDS: AMIODARONE 200 MG TAB NGT ×2 (08:33→21:48)
[2017-12-04] MEDS: ASPIRIN 325 MG TAB PO (08:33)
[2017-12-04] MEDS: OXYCODONE/ACETAMINOPHEN (5/325) TAB PO ×2 (08:34→21:46)
[2017-12-04] MEDS: METOPROLOL 50 MG TAB GTB ×2 (08:39→21:47)
[2017-12-04] MEDS: ATORVASTATIN 40 MG TAB PO (21:46)
[2017-12-05] MEDS: LEVALBUTEROL (NEB) 1.25 MG/0.5 ML AMP HHN ×3 (02:19→14:42)
[2017-12-05] MEDS: IPRATROPIUM (NEB) 0.5 MG/2.5 ML AMP HHN ×3 (02:19→14:42)
[2017-12-05] MEDS: INSULIN ASPART [NOVOLOG] 3 ML PEN SC ×6 (07:55→18:16)
[2017-12-05] MEDS: OXYCODONE/ACETAMINOPHEN (5/325) TAB PO ×2 (08:52→18:12)
[2017-12-05] MEDS: INSULIN GLARGINE [LANtus] 3 ML PEN SC (08:59)
[2017-12-05] MEDS: AMIODARONE 200 MG TAB NGT (09:02)
[2017-12-05] MEDS: METOPROLOL 50 MG TAB GTB (09:02)
[2017-12-05] MEDS: DOCUSATE SODIUM 100 MG CAP PO (09:02)
[2017-12-05] MEDS: ASPIRIN 325 MG TAB PO (09:02)
== END 2017-12-05 18:30 | DRG 219 ==
LOC: REC 06:11 → TEL 11-25 18:31 → ICU 15:34
PROVIDERS: Thoracic Surgery (Cardiothoracic Vascular Surgery)
PROC: 02RF08Z Replacement of Aortic Valve with Zooplastic Tissue, Open Approach (ICD-10-PCS; principal; 2017-11-20 07:30)
PROC: 02RX0JZ Replacement of Thoracic Aorta, Ascending/Arch with Synthetic Substitute, Open Approach (ICD-10-PCS; 2017-11-20 07:30)
PROC: 5A1221Z Performance of Cardiac Output, Continuous (ICD-10-PCS; 2017-11-20 07:30)
PROC: 5A09357 Assistance with Respiratory Ventilation, Less than 24 Consecutive Hours, Continuous Positive Airway Pressure (ICD-10-PCS; 2017-11-20 07:51)
PROC: 4A133R1 Monitoring of Arterial Saturation, Peripheral, Percutaneous Approach (ICD-10-PCS; 2017-11-20 07:51)
PROC: 3E0234Z Introduction of Serum, Toxoid and Vaccine into Muscle, Percutaneous Approach (ICD-10-PCS; 2017-11-20 07:51)
DX: I71.2 Thoracic aortic aneurysm, without rupture (principal); I50.31 Acute diastolic (congestive) heart failure; J95.821 Acute postprocedural respiratory failure; N17.9 Acute kidney failure, unspecified; J44.1 Chronic obstructive pulmonary disease with (acute) exacerbation; E11.22 Type 2 diabetes mellitus with diabetic chronic kidney disease; E11.65 Type 2 diabetes mellitus with hyperglycemia; K56.7 Ileus, unspecified; I13.0 Hypertensive heart and chronic kidney disease with heart failure and stage 1 through stage 4 chronic kidney disease, or unspecified chronic kidney disease; B17.9 Acute viral hepatitis, unspecified; I35.1 Nonrheumatic aortic (valve) insufficiency; J98.01 Acute bronchospasm; N18.3 Chronic kidney disease, stage 3 (moderate); D72.829 Elevated white blood cell count, unspecified; E78.5 Hyperlipidemia, unspecified; I25.10 Atherosclerotic heart disease of native coronary artery without angina pectoris; I48.0 Paroxysmal atrial fibrillation; R00.0 Tachycardia, unspecified; D64.9 Anemia, unspecified; Z23 Encounter for immunization; Z87.891 Personal history of nicotine dependence; Z79.84 Long term (current) use of oral hypoglycemic drugs; Z79.82 Long term (current) use of aspirin; T38.0X5A Adverse effect of glucocorticoids and synthetic analogues, initial encounter
CPT/HCPCS: 36430; 36592; 36600; 71045; 71046; 74018; 76775; 78582; 80048; 80053; 81001; 81003; 82570; 82803; 82962; 83036; 83735; 84100; 84132; 84443; 85014; 85025; 85610; 85730; 86850; 86900; 86901; 86920; 87081; 88305; 90686; 93005; 93306; 93312; 93325; 94002; 94003; 94640; 94660; 94664; 94770; 97116; 97163; 97530; J1940

== ENCOUNTER 2017-12-21 10:20 | Inpatient (IN) | payer OTHER ==
[2017-12-21] MEDS ORDERED: NITROGLYCERIN (SL) 0.4 MG TAB SL ×2 (11:00→15:00)
[2017-12-21] MEDS: ASPIRIN 81 MG TAB PO (11:01)
[2017-12-21] MEDS: NITROGLYCERIN 2% 1 GM OINT PKT TD (11:01)
[2017-12-21] MEDS: FUROSEMIDE 40 MG INJ IV ×2 (11:07→18:03)
[2017-12-21 11:13] LABS: ADD MAN DIFF? NO
[2017-12-21 11:15] LABS: BASOPHIL # 0.1 10^3/ul (0.0-0.1); BASOPHILS % 0.4 % (0.0-2.0); EOSINOPHILS # 0.6 10^3/ul (0.0-0.5); EOSINOPHILS % 5.2 % (0.0-7.0); HEMATOCRIT 37.4 % (42.0-52.0); HEMOGLOBIN 11.8 g/dl (14.0-18.0); LYMPHOCYTES # 1.7 10^3/ul (0.8-2.9); LYMPHOCYTES % 14.6 % (15.0-51.0); MEAN CORPUSCULAR HEMOGLOBIN 31.2 pg (29.0-33.0); MEAN CORPUSCULAR HGB CONC 31.6 g/dl (32.0-37.0); MEAN CORPUSCULAR VOLUME 98.9 fl (82.0-101.0); MEAN PLATELET VOLUME 9.6 fl (7.4-10.4); MONOCYTE # 1.2 10^3/ul (0.3-0.9); NEUTROPHIL # 8.1 10^3/ul (1.6-7.5); PLATELET COUNT 402 10^3/UL (140-415); RED BLOOD COUNT 3.78 10^6/ul (4.70-6.10); RED CELL DISTRIBUTION WIDTH 13.2 % (11.5-14.5)
[2017-12-21 11:15] LABS: WHITE BLOOD COUNT 11.7 10^3/ul (4.8-10.8)
[2017-12-21 11:35] LABS: ANION GAP 18 (8-16); BLOOD UREA NITROGEN 21 mg/dl (7-20); CALCIUM 9.3 mg/dl (8.4-10.2); CARBON DIOXIDE 27 mmol/L (21-31); CHLORIDE 100 mmol/L (97-110); CREATININE 1.32 mg/dl (0.61-1.24); GLUCOSE 105 mg/dl (70-220); POTASSIUM 4.9 mmol/L (3.5-5.1); SODIUM 140 mmol/L (135-144)
[2017-12-21 11:45] LABS: TROPONIN-I 0.046 ng/ml (0.00-0.12)
[2017-12-21] MEDS ORDERED: ONDANSETRON 4 MG INJ IV ×2 (13:00→15:00)
[2017-12-21] MEDS ORDERED: ACETAMINOPHEN 325 MG TAB PO ×2 (13:00→15:00)
[2017-12-21] MEDS ORDERED: DOCUSATE SODIUM 100 MG CAP PO (15:00)
[2017-12-21] MEDS ORDERED: ALBUTEROL HFA 8 GM INHALER INH (15:00)
[2017-12-21] MEDS ORDERED: ZOLPIDEM 5 MG TAB PO (15:00)
[2017-12-21] MEDS ORDERED: DEXTROSE 50% 50 ML SYRINGE IV ×2 (15:30)
[2017-12-21] MEDS ORDERED: GLUCOSE GEL 15 GRAM TUBE PO ×2 (15:30)
[2017-12-21] MEDS ORDERED: GLUCAGON 1 MG INJ IM (15:30)
[2017-12-21] MEDS ORDERED: GLUCOSE GEL 15 GRAM TUBE BUCCAL (15:30)
[2017-12-21] MEDS: PANTOPRAZOLE (EC) 40 MG TAB PO (15:37)
[2017-12-21 16:16] LABS: CREATINE KINASE 75 IU/L (23-200)
[2017-12-21 16:25] LABS: CK INDEX 3.6; TROPONIN-I 0.041 ng/ml (0.00-0.12)
[2017-12-21 16:26] LABS: CK-MB 2.68 ng/ml (0.0-2.4)
[2017-12-21 16:45] LABS: ALANINE AMINOTRANSFERASE 39 IU/L (13-69); ALBUMIN 4.1 g/dl (3.3-4.9); ALKALINE PHOSPHATASE 109 IU/L (42-121); ASPARTATE AMINO TRANSFERASE 27 IU/L (15-46); BILIRUBIN,INDIRECT 0.1 mg/dl (0-1.1); BILIRUBIN,TOTAL 0.1 mg/dl (0.2-1.3); MAGNESIUM 1.9 mg/dl (1.7-2.5); PHOSPHORUS 4.3 mg/dl (2.5-4.9); TOTAL PROTEIN 7.6 g/dl (6.1-8.1)
[2017-12-21] MEDS: ALBUTEROL/IPRATROPIUM (NEB) 3 ML AMP NEB ×2 (17:10→23:17)
[2017-12-21] MEDS: INSULIN ASPART [NOVOLOG] 3 ML PEN SC ×2 (17:57→21:00)
[2017-12-21] MEDS: ACETAMINOPHEN 325 MG TAB PO (18:03)
[2017-12-21] MEDS: metFORMIN 500 MG TAB PO (18:03)
[2017-12-21 20:18] LABS: B-TYPE NATRIURETIC PEPTIDE 1660 PG/ML (0-125)
[2017-12-21] MEDS: METOPROLOL 25 MG TAB PO (21:35)
[2017-12-21] MEDS: DOCUSATE SODIUM 100 MG CAP PO (21:35)
[2017-12-21] MEDS: ATORVASTATIN 40 MG TAB PO (21:36)
[2017-12-21] MEDS: INSULIN GLARGINE [LANtus] 3 ML PEN SC (21:40)
[2017-12-21 23:50] LABS: CREATINE KINASE 78 IU/L (23-200)
[2017-12-22 00:02] LABS: CK INDEX 3.8; TROPONIN-I 0.023 ng/ml (0.00-0.12)
[2017-12-22 00:04] LABS: CK-MB 2.99 ng/ml (0.0-2.4)
[2017-12-22] MEDS: HYDROCODONE/APAP (5/325) TAB PO (04:35)
[2017-12-22] MEDS: PANTOPRAZOLE (EC) 40 MG TAB PO (06:21)
[2017-12-22] MEDS: FUROSEMIDE 40 MG INJ IV ×2 (06:22→17:28)
[2017-12-22 07:58] LABS: ADD MAN DIFF? NO
[2017-12-22] MEDS: INSULIN ASPART [NOVOLOG] 3 ML PEN SC ×4 (08:00→21:00)
[2017-12-22 08:06] LABS: WHITE BLOOD COUNT 12.4 10^3/ul (4.8-10.8)
[2017-12-22 08:06] LABS: BASOPHIL # 0.1 10^3/ul (0.0-0.1); BASOPHILS % 0.6 % (0.0-2.0); EOSINOPHILS # 0.4 10^3/ul (0.0-0.5); EOSINOPHILS % 3.6 % (0.0-7.0); HEMOGLOBIN 12.4 g/dl (14.0-18.0); LYMPHOCYTES # 1.8 10^3/ul (0.8-2.9); LYMPHOCYTES % 14.2 % (15.0-51.0); MEAN CORPUSCULAR HEMOGLOBIN 30.5 pg (29.0-33.0); MEAN CORPUSCULAR VOLUME 98.3 fl (82.0-101.0); MEAN PLATELET VOLUME 9.6 fl (7.4-10.4); MONOCYTE # 1.2 10^3/ul (0.3-0.9); MONOCYTES % 9.5 % (0.0-11.0); NEUTROPHIL # 8.8 10^3/ul (1.6-7.5); NEUTROPHILS % 71.1 % (39.0-77.0); PLATELET COUNT 420 10^3/UL (140-415); RED BLOOD COUNT 4.07 10^6/ul (4.70-6.10); RED CELL DISTRIBUTION WIDTH 13.4 % (11.5-14.5)
[2017-12-22 08:27] LABS: CHOLESTEROL 73 mg/dl (100-200)
[2017-12-22 08:27] LABS: CHOL/HDL RATIO 1.9 RATIO; HDL CHOLESTEROL 37 mg/dl (30-78); LDL CHOLESTEROL,CALCULATED 13 mg/dl; TRIGLYCERIDES 113 mg/dl (0-149)
[2017-12-22 08:30] LABS: ANION GAP 18 (8-16); BLOOD UREA NITROGEN 23 mg/dl (7-20); CALCIUM 9.7 mg/dl (8.4-10.2); CARBON DIOXIDE 30 mmol/L (21-31); CHLORIDE 100 mmol/L (97-110); CREATININE 1.36 mg/dl (0.61-1.24); GLUCOSE 101 mg/dl (70-220); MAGNESIUM 1.9 mg/dl (1.7-2.5); POTASSIUM 5.5 mmol/L (3.5-5.1); SODIUM 142 mmol/L (135-144)
[2017-12-22] MEDS: AMIODARONE 200 MG TAB PO (09:17)
[2017-12-22] MEDS: MULTIVITAMINS THERAPEUTIC TAB PO (09:17)
[2017-12-22] MEDS: ACETAMINOPHEN 325 MG TAB PO ×2 (09:17→16:34)
[2017-12-22] MEDS: DOCUSATE SODIUM 100 MG CAP PO ×2 (09:17→21:24)
[2017-12-22] MEDS: METOPROLOL 25 MG TAB PO ×2 (09:18→21:26)
[2017-12-22] MEDS: metFORMIN 500 MG TAB PO (09:26)
[2017-12-22] MEDS: ENOXAPARIN 30 MG/0.3 ML SYG SC (09:26)
[2017-12-22] MEDS: ALBUTEROL/IPRATROPIUM (NEB) 3 ML AMP NEB ×2 (11:30→17:31)
[2017-12-22 16:21] LABS: LACTIC ACID 1.2 mmol/L (0.5-2.0)
[2017-12-22] MEDS: NA POLYST SULFON 15 GM/60 ML BTL PO (16:34)
[2017-12-22] MEDS: APIXABAN 5 MG TABLET PO (21:24)
[2017-12-22] MEDS: ATORVASTATIN 40 MG TAB PO (21:25)
[2017-12-22] MEDS: INSULIN GLARGINE [LANtus] 3 ML PEN SC (21:27)
[2017-12-23] MEDS: ALBUTEROL/IPRATROPIUM (NEB) 3 ML AMP NEB ×3 (00:09→23:01)
[2017-12-23] MEDS: FUROSEMIDE 40 MG INJ IV ×2 (06:08→17:34)
[2017-12-23] MEDS: PANTOPRAZOLE (EC) 40 MG TAB PO (06:09)
[2017-12-23 06:48] LABS: ADD MAN DIFF? NO
[2017-12-23 06:50] LABS: WHITE BLOOD COUNT 10.4 10^3/ul (4.8-10.8)
[2017-12-23 06:50] LABS: BASOPHIL # 0.1 10^3/ul (0.0-0.1); BASOPHILS % 0.6 % (0.0-2.0); EOSINOPHILS # 0.3 10^3/ul (0.0-0.5); EOSINOPHILS % 2.9 % (0.0-7.0); HEMATOCRIT 36.7 % (42.0-52.0); HEMOGLOBIN 11.5 g/dl (14.0-18.0); LYMPHOCYTES # 1.3 10^3/ul (0.8-2.9); LYMPHOCYTES % 12.3 % (15.0-51.0); MEAN CORPUSCULAR HEMOGLOBIN 30.7 pg (29.0-33.0); MEAN CORPUSCULAR HGB CONC 31.3 g/dl (32.0-37.0); MEAN CORPUSCULAR VOLUME 98.1 fl (82.0-101.0); MEAN PLATELET VOLUME 9.6 fl (7.4-10.4); MONOCYTE # 1.1 10^3/ul (0.3-0.9); MONOCYTES % 10.5 % (0.0-11.0); NEUTROPHIL # 7.6 10^3/ul (1.6-7.5); NEUTROPHILS % 72.8 % (39.0-77.0); PLATELET COUNT 385 10^3/UL (140-415); RED BLOOD COUNT 3.74 10^6/ul (4.70-6.10); RED CELL DISTRIBUTION WIDTH 13.2 % (11.5-14.5)
[2017-12-23 07:23] LABS: ANION GAP 16 (8-16); BLOOD UREA NITROGEN 23 mg/dl (7-20); CALCIUM 8.9 mg/dl (8.4-10.2); CARBON DIOXIDE 32 mmol/L (21-31); CHLORIDE 98 mmol/L (97-110); CREATININE 1.45 mg/dl (0.61-1.24); GLUCOSE 95 mg/dl (70-220); POTASSIUM 4.7 mmol/L (3.5-5.1); SODIUM 141 mmol/L (135-144)
[2017-12-23] MEDS: INSULIN ASPART [NOVOLOG] 3 ML PEN SC ×4 (08:00→21:00)
[2017-12-23] MEDS: DOCUSATE SODIUM 100 MG CAP PO ×2 (08:23→21:08)
[2017-12-23] MEDS: APIXABAN 5 MG TABLET PO ×2 (08:23→21:08)
[2017-12-23] MEDS: AMIODARONE 200 MG TAB PO (08:24)
[2017-12-23] MEDS: MULTIVITAMINS THERAPEUTIC TAB PO (08:24)
[2017-12-23] MEDS: METOPROLOL 25 MG TAB PO ×2 (08:24→21:13)
[2017-12-23] MEDS: ACETAMINOPHEN 325 MG TAB PO (08:33)
[2017-12-23] MEDS: SALMETEROL/FLUTICASONE 250/50 INHA INH ×2 (13:35→21:18)
[2017-12-23 17:33] LABS: ADD UMIC YES; UR ASCORBIC ACID NEGATIVE (NEGATIVE); UR BILIRUBIN (Dip) NEGATIVE (NEGATIVE); UR BLOOD (Dip) 1+ mg/dL (NEGATIVE); UR CLARITY CLEAR (CLEAR); UR COLOR YELLOW (YELLOW); UR GLUCOSE (Dip) NEGATIVE (NEGATIVE); UR KETONES (Dip) NEGATIVE (NEGATIVE); UR LEUKOCYTE ESTERASE (Dip) NEGATIVE Leu/ul (NEGATIVE); UR MUCUS FEW /HPF (NONE SEEN); UR NITRITE (Dip) NEGATIVE (NEGATIVE); UR RBC 6 /HPF (0-5); UR SPECIFIC GRAVITY (Dip) 1.006 (1.003-1.030); UR TOTAL PROTEIN (Dip) NEGATIVE (NEGATIVE); UR UROBILINOGEN (Dip) NEGATIVE (NEGATIVE); UR WBC 0 /HPF (0-5)
[2017-12-23 17:41] LABS: CREATININE,URINE RANDOM 54.16 mg/dl (20-370)
[2017-12-23 17:41] LABS: SODIUM,URINE RANDOM 24 mmol/L (30-90)
[2017-12-23 17:42] LABS: CREATININE,URINE RANDOM 56.91 mg/dl (20-370); PROTEIN/CREAT RATIO 0.29 RATIO
[2017-12-23 18:03] LABS: ERYTHROCYTE SEDIMENTATION RATE 35 mm/Hr (0-20)
[2017-12-23] MEDS: ATORVASTATIN 40 MG TAB PO (21:08)
[2017-12-23] MEDS: INSULIN GLARGINE [LANtus] 3 ML PEN SC (21:21)
[2017-12-23] MEDS: HYDROCODONE/APAP (5/325) TAB PO (22:56)
[2017-12-24] MEDS: FUROSEMIDE 40 MG INJ IV ×2 (05:32→17:07)
[2017-12-24] MEDS: PANTOPRAZOLE (EC) 40 MG TAB PO (05:32)
[2017-12-24 07:57] LABS: ADD MAN DIFF? NO
[2017-12-24 07:59] LABS: WHITE BLOOD COUNT 11.3 10^3/ul (4.8-10.8)
[2017-12-24 07:59] LABS: BASOPHIL # 0.1 10^3/ul (0.0-0.1); BASOPHILS % 0.5 % (0.0-2.0); EOSINOPHILS # 0.3 10^3/ul (0.0-0.5); EOSINOPHILS % 2.7 % (0.0-7.0); HEMOGLOBIN 12.4 g/dl (14.0-18.0); LYMPHOCYTES # 1.1 10^3/ul (0.8-2.9); LYMPHOCYTES % 9.4 % (15.0-51.0); MEAN CORPUSCULAR HEMOGLOBIN 30.6 pg (29.0-33.0); MEAN CORPUSCULAR HGB CONC 31.8 g/dl (32.0-37.0); MEAN CORPUSCULAR VOLUME 96.3 fl (82.0-101.0); MEAN PLATELET VOLUME 10.1 fl (7.4-10.4); MONOCYTE # 1.2 10^3/ul (0.3-0.9); MONOCYTES % 10.9 % (0.0-11.0); NEUTROPHIL # 8.6 10^3/ul (1.6-7.5); PLATELET COUNT 377 10^3/UL (140-415); RED BLOOD COUNT 4.05 10^6/ul (4.70-6.10); RED CELL DISTRIBUTION WIDTH 13.2 % (11.5-14.5)
[2017-12-24] MEDS: INSULIN ASPART [NOVOLOG] 3 ML PEN SC ×4 (08:03→21:00)
[2017-12-24 08:30] LABS: ANION GAP 19 (8-16); BLOOD UREA NITROGEN 25 mg/dl (7-20); CARBON DIOXIDE 28 mmol/L (21-31); CHLORIDE 97 mmol/L (97-110); CREATININE 1.25 mg/dl (0.61-1.24); GLUCOSE 98 mg/dl (70-220); SODIUM 140 mmol/L (135-144)
[2017-12-24] MEDS: DOCUSATE SODIUM 100 MG CAP PO ×2 (09:09→21:57)
[2017-12-24] MEDS: SALMETEROL/FLUTICASONE 250/50 INHA INH ×2 (09:10→21:57)
[2017-12-24] MEDS: METOPROLOL 25 MG TAB PO ×2 (09:10→21:00)
[2017-12-24] MEDS: AMIODARONE 200 MG TAB PO (09:10)
[2017-12-24] MEDS: MULTIVITAMINS THERAPEUTIC TAB PO (09:10)
[2017-12-24] MEDS: APIXABAN 5 MG TABLET PO ×2 (09:10→21:57)
[2017-12-24] MEDS: HYDROCODONE/APAP (5/325) TAB PO ×2 (09:18→21:56)
[2017-12-24] MEDS: ALBUTEROL/IPRATROPIUM (NEB) 3 ML AMP NEB ×2 (09:25→22:04)
[2017-12-24] MEDS: ATORVASTATIN 40 MG TAB PO (21:57)
[2017-12-24] MEDS: INSULIN GLARGINE [LANtus] 3 ML PEN SC (22:03)
[2017-12-25] MEDS: FUROSEMIDE 40 MG INJ IV ×2 (06:31→17:25)
[2017-12-25] MEDS: PANTOPRAZOLE (EC) 40 MG TAB PO (06:31)
[2017-12-25] MEDS: INSULIN ASPART [NOVOLOG] 3 ML PEN SC ×4 (08:32→20:47)
[2017-12-25 08:52] LABS: ADD MAN DIFF? NO
[2017-12-25 09:02] LABS: WHITE BLOOD COUNT 9.6 10^3/ul (4.8-10.8)
[2017-12-25 09:02] LABS: BASOPHILS % 0.3 % (0.0-2.0); EOSINOPHILS # 0.2 10^3/ul (0.0-0.5); EOSINOPHILS % 2.5 % (0.0-7.0); HEMATOCRIT 39.5 % (42.0-52.0); HEMOGLOBIN 12.2 g/dl (14.0-18.0); LYMPHOCYTES % 10.4 % (15.0-51.0); MEAN CORPUSCULAR HEMOGLOBIN 30.2 pg (29.0-33.0); MEAN CORPUSCULAR HGB CONC 30.9 g/dl (32.0-37.0); MEAN CORPUSCULAR VOLUME 97.8 fl (82.0-101.0); MEAN PLATELET VOLUME 9.7 fl (7.4-10.4); MONOCYTES % 9.9 % (0.0-11.0); NEUTROPHIL # 7.4 10^3/ul (1.6-7.5); NEUTROPHILS % 76.3 % (39.0-77.0); PLATELET COUNT 386 10^3/UL (140-415); RED BLOOD COUNT 4.04 10^6/ul (4.70-6.10); RED CELL DISTRIBUTION WIDTH 13.2 % (11.5-14.5)
[2017-12-25 09:22] LABS: ANION GAP 17 (8-16); BLOOD UREA NITROGEN 20 mg/dl (7-20); CARBON DIOXIDE 33 mmol/L (21-31); CHLORIDE 96 mmol/L (97-110); CREATININE 1.34 mg/dl (0.61-1.24); GLUCOSE 153 mg/dl (70-220); POTASSIUM 4.2 mmol/L (3.5-5.1); SODIUM 142 mmol/L (135-144)
[2017-12-25] MEDS: DOCUSATE SODIUM 100 MG CAP PO ×2 (09:43→20:41)
[2017-12-25] MEDS: APIXABAN 5 MG TABLET PO ×2 (09:43→20:41)
[2017-12-25] MEDS: MULTIVITAMINS THERAPEUTIC TAB PO (09:45)
[2017-12-25] MEDS: AMIODARONE 200 MG TAB PO (09:45)
[2017-12-25] MEDS: METOPROLOL 25 MG TAB PO ×2 (09:45→20:42)
[2017-12-25] MEDS: SALMETEROL/FLUTICASONE 250/50 INHA INH ×2 (09:45→20:43)
[2017-12-25] MEDS: HYDROCODONE/APAP (5/325) TAB PO ×2 (13:55→20:40)
[2017-12-25] MEDS: GUAIFENESIN/DM 5ML CUP PO (16:09)
[2017-12-25] MEDS: ATORVASTATIN 40 MG TAB PO (20:41)
[2017-12-25] MEDS: INSULIN GLARGINE [LANtus] 3 ML PEN SC (20:52)
[2017-12-26] MEDS: HYDROCODONE/APAP (5/325) TAB PO ×3 (00:12→21:27)
[2017-12-26] MEDS: FUROSEMIDE 40 MG INJ IV ×2 (05:07→17:44)
[2017-12-26] MEDS: PANTOPRAZOLE (EC) 40 MG TAB PO (05:07)
[2017-12-26 07:46] LABS: ADD MAN DIFF? NO
[2017-12-26 07:50] LABS: BASOPHIL # 0.1 10^3/ul (0.0-0.1); BASOPHILS % 0.6 % (0.0-2.0); EOSINOPHILS # 0.4 10^3/ul (0.0-0.5); EOSINOPHILS % 3.7 % (0.0-7.0); HEMATOCRIT 37.4 % (42.0-52.0); HEMOGLOBIN 11.7 g/dl (14.0-18.0); LYMPHOCYTES # 1.1 10^3/ul (0.8-2.9); LYMPHOCYTES % 11.6 % (15.0-51.0); MEAN CORPUSCULAR HEMOGLOBIN 30.5 pg (29.0-33.0); MEAN CORPUSCULAR HGB CONC 31.3 g/dl (32.0-37.0); MEAN CORPUSCULAR VOLUME 97.7 fl (82.0-101.0); MEAN PLATELET VOLUME 9.6 fl (7.4-10.4); MONOCYTES % 10.4 % (0.0-11.0); NEUTROPHIL # 7.2 10^3/ul (1.6-7.5); NEUTROPHILS % 73.2 % (39.0-77.0); PLATELET COUNT 366 10^3/UL (140-415); RED BLOOD COUNT 3.83 10^6/ul (4.70-6.10); RED CELL DISTRIBUTION WIDTH 12.8 % (11.5-14.5)
[2017-12-26 07:50] LABS: WHITE BLOOD COUNT 9.8 10^3/ul (4.8-10.8)
[2017-12-26] MEDS: INSULIN ASPART [NOVOLOG] 3 ML PEN SC ×4 (08:00→21:00)
[2017-12-26 08:17] LABS: ANION GAP 13 (8-16); BLOOD UREA NITROGEN 20 mg/dl (7-20); CALCIUM 8.9 mg/dl (8.4-10.2); CARBON DIOXIDE 36 mmol/L (21-31); CHLORIDE 95 mmol/L (97-110); CREATININE 1.28 mg/dl (0.61-1.24); GLUCOSE 115 mg/dl (70-220); POTASSIUM 4.1 mmol/L (3.5-5.1); SODIUM 140 mmol/L (135-144)
[2017-12-26 08:19] LABS: PHOSPHORUS 2.8 mg/dl (2.5-4.9)
[2017-12-26 08:19] LABS: MAGNESIUM 1.9 mg/dl (1.7-2.5)
[2017-12-26] MEDS: SALMETEROL/FLUTICASONE 250/50 INHA INH ×2 (08:55→21:16)
[2017-12-26] MEDS: APIXABAN 5 MG TABLET PO ×2 (08:56→21:18)
[2017-12-26] MEDS: DOCUSATE SODIUM 100 MG CAP PO ×2 (08:56→21:17)
[2017-12-26] MEDS: MULTIVITAMINS THERAPEUTIC TAB PO (08:56)
[2017-12-26] MEDS: METOPROLOL 25 MG TAB PO ×2 (08:57→21:17)
[2017-12-26] MEDS: AMIODARONE 200 MG TAB PO (08:58)
[2017-12-26] MEDS: GUAIFENESIN/DM 5ML CUP PO (15:08)
[2017-12-26] MEDS: ALBUTEROL/IPRATROPIUM (NEB) 3 ML AMP NEB (21:00)
[2017-12-26] MEDS: ATORVASTATIN 40 MG TAB PO (21:18)
[2017-12-26] MEDS: INSULIN GLARGINE [LANtus] 3 ML PEN SC (21:30)
[2017-12-27] MEDS: PANTOPRAZOLE (EC) 40 MG TAB PO (06:31)
[2017-12-27] MEDS: FUROSEMIDE 40 MG INJ IV (06:31)
[2017-12-27 07:03] LABS: ADD MAN DIFF? NO
[2017-12-27 07:09] LABS: BASOPHIL # 0.1 10^3/ul (0.0-0.1); BASOPHILS % 0.7 % (0.0-2.0); EOSINOPHILS # 0.3 10^3/ul (0.0-0.5); EOSINOPHILS % 2.8 % (0.0-7.0); HEMATOCRIT 37.9 % (42.0-52.0); HEMOGLOBIN 11.8 g/dl (14.0-18.0); LYMPHOCYTES # 1.4 10^3/ul (0.8-2.9); MEAN CORPUSCULAR HEMOGLOBIN 30.4 pg (29.0-33.0); MEAN CORPUSCULAR HGB CONC 31.1 g/dl (32.0-37.0); MEAN CORPUSCULAR VOLUME 97.7 fl (82.0-101.0); MEAN PLATELET VOLUME 9.8 fl (7.4-10.4); MONOCYTES % 9.9 % (0.0-11.0); NEUTROPHILS % 72.1 % (39.0-77.0); PLATELET COUNT 349 10^3/UL (140-415); RED BLOOD COUNT 3.88 10^6/ul (4.70-6.10); RED CELL DISTRIBUTION WIDTH 13.1 % (11.5-14.5)
[2017-12-27 07:09] LABS: WHITE BLOOD COUNT 9.7 10^3/ul (4.8-10.8)
[2017-12-27 07:47] LABS: ANION GAP 12 (8-16); BLOOD UREA NITROGEN 24 mg/dl (7-20); CALCIUM 9.2 mg/dl (8.4-10.2); CARBON DIOXIDE 35 mmol/L (21-31); CHLORIDE 97 mmol/L (97-110); CREATININE 1.27 mg/dl (0.61-1.24); GLUCOSE 107 mg/dl (70-220); POTASSIUM 4.4 mmol/L (3.5-5.1); SODIUM 140 mmol/L (135-144)
[2017-12-27 07:47] LABS: PHOSPHORUS 3.3 mg/dl (2.5-4.9)
[2017-12-27] MEDS: INSULIN ASPART [NOVOLOG] 3 ML PEN SC ×2 (07:59→11:29)
[2017-12-27] MEDS: METOPROLOL 25 MG TAB PO (08:55)
[2017-12-27] MEDS: SALMETEROL/FLUTICASONE 250/50 INHA INH (08:55)
[2017-12-27] MEDS: MULTIVITAMINS THERAPEUTIC TAB PO (08:56)
[2017-12-27] MEDS: APIXABAN 5 MG TABLET PO (08:56)
[2017-12-27] MEDS: DOCUSATE SODIUM 100 MG CAP PO (08:56)
[2017-12-27] MEDS: AMIODARONE 200 MG TAB PO (08:56)
[2017-12-27] MEDS: morphine 2 MG INJ IV (11:21)
[2017-12-27] MEDS: ALBUTEROL/IPRATROPIUM (NEB) 3 ML AMP NEB (12:26)
[2017-12-27] MEDS ORDERED: FUROSEMIDE 40 MG TAB PO (18:00)
== END 2017-12-27 16:14 | disposition home health service (06) | DRG 291 ==
LOC: E/R 10:20 → MS4 12:59
DX: I13.0 Hypertensive heart and chronic kidney disease with heart failure and stage 1 through stage 4 chronic kidney disease, or unspecified chronic kidney disease (principal); I50.33 Acute on chronic diastolic (congestive) heart failure; J96.21 Acute and chronic respiratory failure with hypoxia; N17.9 Acute kidney failure, unspecified; I31.3 Pericardial effusion (noninflammatory); J43.9 Emphysema, unspecified; N18.3 Chronic kidney disease, stage 3 (moderate); I48.0 Paroxysmal atrial fibrillation; D63.1 Anemia in chronic kidney disease; Z99.81 Dependence on supplemental oxygen; E78.5 Hyperlipidemia, unspecified; E11.22 Type 2 diabetes mellitus with diabetic chronic kidney disease; E11.21 Type 2 diabetes mellitus with diabetic nephropathy; D72.829 Elevated white blood cell count, unspecified; I25.10 Atherosclerotic heart disease of native coronary artery without angina pectoris; Z79.4 Long term (current) use of insulin; Z79.82 Long term (current) use of aspirin; Z87.891 Personal history of nicotine dependence; Z82.49 Family history of ischemic heart disease and other diseases of the circulatory system; Z95.3 Presence of xenogenic heart valve
CPT/HCPCS: 36415; 71045; 71250; 76775; 80048; 80061; 80076; 81001; 81003; 82550; 82553; 82570; 82962; 83605; 83735; 83880; 84100; 84155; 84300; 84484; 85025; 85651; 86140; 93005; 93306; 94640; 96374; 97110; 97116; 97162; 97530; 99285-25; G0378

== ENCOUNTER 2018-01-02 15:14 | Outpatient (CLI) | payer OTHER | END 2018-01-02 17:00 | disposition home or self-care (01) | LOC: DCC 17:00 | DX: I48.0 Paroxysmal atrial fibrillation (principal); N28.9 Disorder of kidney and ureter, unspecified; D64.9 Anemia, unspecified; I71.2 Thoracic aortic aneurysm, without rupture; E11.9 Type 2 diabetes mellitus without complications; J44.9 Chronic obstructive pulmonary disease, unspecified; I27.20 Pulmonary hypertension, unspecified | CPT/HCPCS: G0463 ==

== ENCOUNTER → 2018-05-30 | Outpatient (CLI) | payer OTHER ==
[~2018-05-30] MED LIST: ALBUTEROL 0.083% (NEB) 2.5 MG/3 ML AMP
== END | disposition home or self-care (01) ==
LOC: PUL 11:19
DX: J43.9 Emphysema, unspecified (principal)
CPT/HCPCS: 94060; 94664; 94726; 94729